=== PATIENT | female | born 1955 | race Caucasian/White ===

== ENCOUNTER → 2019-11-27 14:25 | Outpatient (BNVA) | payer MEDICARE, OTHER, SELFPAY | PROVIDERS: Referring Provider Family Medicine; Visit Provider Specialist | DX: M25.511 Pain in right shoulder (principal) | CPT/HCPCS: 73030 ==

== ENCOUNTER 2019-11-29 15:38 | Outpatient (CLI) | payer MEDICARE, OTHER, SELFPAY ==
--- NOTE | 2019-11-29 16:00 | MR_ITS ---
WS: [id number] MRI RIGHT SHOULDER HISTORY: Pain COMPARISON: RIGHT shoulder radiograph 11/27/2019 TECHNIQUE: Multiplanar sequences of the shoulder joint are submitted. Mild AC joint hypertrophy. Narrowing of the joint space with fluid along the AC ligament. Very minima l encroachment upon the rotator cuff. Small amount of fluid in the subacromial and subdeltoid bursa. No os acromion. Increased signal in the distal supraspinatus tendon consistent with tendinopathy. Fraying along the a rticular surface is suspected but there is no full-thickness tear or retraction. Mild thinning of the distal subscapularis tendon but no full-thickness tear. There is some tendinopathy present. Infraspi natus tendon is intact. There is mild atrophy of the infraspinatus and subscapularis muscles. No katie a. Biceps tendon is in normal position. There is increased T2 signal along the region of the coracohumer al ligament. There is a small amount of fluid adjacent to the coracoid process. No full-thickness lab ral tears are identified. There is some fraying along the surfaces of the superior labrum and mild gl enohumeral joint space narrowing. MR/MR shoulder RT wo con* [id number] IMPRESSION: 1. Mild tendinopathy distal supraspinatus tendon with articular surface frayin g but no tear identified. 2. Thinning of the distal subscapularis tendon with no full-thickness tear. 3. Mild atrophy infraspinatus and subscapularis muscles. 4. 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 5. Coracohumeral ligament edema. 6. Moderate glenohumeral joint arthritis.
== END 2019-11-29 15:39 | disposition home or self-care (01) ==
LOC: RADSHAW 15:43
PROVIDERS: PCP Family Medicine; Visit Provider Specialist
DX: M75.81 Other shoulder lesions, right shoulder (principal); M19.011 Primary osteoarthritis, right shoulder; R60.9 Edema, unspecified
CPT/HCPCS: 73221

== ENCOUNTER 2020-02-07 06:00 | Outpatient (RCR) | payer MEDICARE, OTHER, SELFPAY | END 2020-03-05 23:59 | disposition home or self-care (01) | LOC: TPT 06:00 | PROVIDERS: PCP Family Medicine; Referring Provider Specialist; Visit Provider Specialist | DX: M75.01 Adhesive capsulitis of right shoulder (principal) | CPT/HCPCS: 97035; 97110; 97161; G0283 ==